=== PATIENT | male | born 1950 | race Caucasian/White ===

== ENCOUNTER → 2017-10-06 | Outpatient (CLI) | payer MEDICARE ==
[~2017-10-06] MED LIST: ACYCLOVIR 800800 MG; AMITRIPTYLINE H75 M2 PO; ANAPROX DS550 MG PO; ASPIR 8181 M1 PO; CALCIUM 500+D1 EAC2; CALCIUM CITRAT480 GM PO; CARAFATE 1 GM TA1 GM PO; CARDIZEM CD120 MG PO; CARDIZEM30 MG PO; CARISOPRODOL 3350 MG PO; CENTRUM SILVER1 EAC2 PO; CIPROFLOXACIN500 M1 PO; CIPROFLOXACIN500 M3 OR; DURAGESIC1 EAC2; FLAGYL500 MG PO; FLEXERIL PO; FLOMAX PO; HYDROCODON-ACE1 EAC7 PO; HYDROCODONE-AP1 EAC6 PO; IBUPROFEN 600600 M1 PO; IBUPROFEN 800800 M1 PO; LIDODERM 5%1 PATC1 TOP; LIDODERM 5%1 PATC1 TRANSDERM; LIPITOR10 MG; MEDROLDOSEPACK PO; METOPROLOL TART25 MG PO; NAPROSYN250 MG PO; NEURONTIN 300300 M1 PO; NOHOMEMEDICATIONS; NORCO 5-325 TA1 EACH PO; OMEPRAZOLE 20 M20 M1; OMEPRAZOLE 20 M20 MG PO; OXYCODONE HCL 55 MG PO; PERCOCET 5-3251 EACH PO; PERCOCET 7.5-31 EACH PO; PERCOCET PO; PRILOSEC 20 MG20 MG; REGLAN 10 MG TA10 MG PO; TOPROL XL25 MG; TRAMADOL 50 MG50 MG PO; ULTRAM 50MG TAB50 MG PO; VALIUM5 MG PO; VICODIN 5-5001 EACH PO; VICOPROFEN 2001 EACH PO; VITAMINS; WELLBUTRIN SR150 MG PO; XARELTO10 MG PO; ZOFRAN 4 MG ORAL4 M1 DIS; ZOFRAN ODT4 MG PO
== END ==
LOC: M.ULTRA 09:13
DX: R10.11 Right upper quadrant pain (principal)

== ENCOUNTER → 2017-10-14 | Outpatient (CLI) | payer MEDICARE | LOC: M.ULTRA 13:07 | DX: R94.6 Abnormal results of thyroid function studies (principal) ==

== ENCOUNTER → 2017-11-26 | Outpatient (CLI) | payer MEDICARE ==
[2017-11-26 13:54] LABS: CREATININE 0.8 mg/dL (0.6-1.3)
== END ==
LOC: M.LAB 13:19 → M.MRI 14:30
PROVIDERS: Orthopaedic Surgery
DX: R22.31 Localized swelling, mass and lump, right upper limb (principal)

== ENCOUNTER 2017-11-28 21:30 | Emergency (ER) | payer MEDICARE ==
[~2017-11-28] VITALS: Ht 177.8 cm; Wt 68.0 kg
[~2017-11-28 21:30] MED LIST changes: -CARAFATE 1 GM TA1 GM PO; -CIPROFLOXACIN500 M1 PO; -FLAGYL500 MG PO; -PRILOSEC 20 MG20 MG; -REGLAN 10 MG TA10 MG PO
[2017-11-28] MEDS ORDERED: PRILOSEC 20 MG20 MG (21:39)
[2017-11-28 22:02] LABS: ABSOLUTE LYMPHOCYTES 2.9 thou/uL (0.8-5.3); ABSOLUTE MONOCYTES 0.5 thou/uL (0.0-1.2); ABSOLUTE NEUTROPHILS 5.6 thou/uL (1.6-8.1); BASOPHILS 0.2 %; EOSINOPHILS 0.5 %; HEMATOCRIT 44.8 % (42.0-52.0); HEMOGLOBIN 14.9 gm/dL (14.0-18.0); LYMPHOCYTES 31.6 %; MCH 32.3 pg (26.0-34.0); MCHC 33.1 g/dL (28.0-37.0); MCV 97.5 fL (80.0-100.0); MPV 7.7 fl. (7.2-11.1); NUCLEATED RBCS 0 /100WBC; PLATELET COUNT* 339 thou/uL (150-400); POLYS 61.7 %; RDW-CV 13.4 % (10.5-14.5); WBC 9.1 thou/uL (4.0-11.0)
[2017-11-28 22:10] LABS: CALCIUM 9.4 mg/dL (8.5-10.1); CREATININE 0.9 mg/dL (0.6-1.3); POTASSIUM 3.5 mmol/L (3.5-5.1)
[2017-11-28 22:15] LABS: ALBUMIN 3.7 g/dL (3.4-5.0); TOTAL BILIRUBIN 0.4 mg/dL (<0.1-1.0); TOTAL PROTEIN 7.4 g/dL (6.4-8.2)
[2017-11-28 23:12] LABS: URINE BILIRUBIN NEGATIVE (Negative); URINE BLOOD NEGATIVE (Negative); URINE CLARITY CLEAR; URINE COLOR YELLOW; URINE GLUCOSE-RANDOM NEGATIVE (Negative); URINE KETONES NEGATIVE (Negative); URINE LEUKOCYTES-REFLEX NEGATIVE (Negative); URINE NITRITE-REFLEX NEGATIVE (Negative); URINE PROTEIN NEGATIVE (Negative); URINE SPECIFIC GRAVITY <= 1.005 (1.005-1.030); URINE UROBILINOGEN 0.2 E.U./dl (0.2-1.0)
[2017-11-28 23:21] LABS: AMP/METHAMP Negative (Negative); BARBITURATES Negative (Negative); BENZODIAZEPINES Negative (Negative); COCAINE Negative (Negative); METHADONE Negative (Negative); OPIATES Negative (Negative); PCP Negative (Negative); THC Negative (Negative)
[2017-11-28] MEDS ORDERED: FLAGYL500 MG PO (23:47)
[2017-11-28] MEDS ORDERED: CARAFATE 1 GM TA1 GM PO (23:47)
[2017-11-28] MEDS ORDERED: NORCO 5-325 TA1 EACH PO (23:47)
[2017-11-28] MEDS ORDERED: CIPROFLOXACIN500 M1 PO (23:47)
[2017-11-28] MEDS ORDERED: REGLAN 10 MG TA10 MG PO (23:47)
[2017-11-29 00:04] VITALS: BP 111/64
== END 2017-11-29 01:30 | disposition home or self-care (01) ==
LOC: M.ERS 21:30
PROVIDERS: Emergency Medicine
DX: R10.12 Left upper quadrant pain (principal); F17.210 Nicotine dependence, cigarettes, uncomplicated; Z90.49 Acquired absence of other specified parts of digestive tract; Z88.0 Allergy status to penicillin

== ENCOUNTER → 2017-12-10 | Outpatient (CLI) | payer MEDICARE ==
[~2017-12-10] MED LIST changes: +CARAFATE 1 GM TA1 GM PO; +CIPROFLOXACIN500 M1 PO; +FLAGYL500 MG PO; +PRILOSEC 20 MG20 MG; +REGLAN 10 MG TA10 MG PO
== END ==
LOC: M.NUC 07:00
DX: R10.9 Unspecified abdominal pain (principal); R68.81 Early satiety; Z87.891 Personal history of nicotine dependence; Z88.0 Allergy status to penicillin

== ENCOUNTER → 2017-12-14 | Outpatient (CLI) | payer MEDICARE | LOC: M.NUC 07:06 | DX: R10.9 Unspecified abdominal pain (principal); R68.81 Early satiety ==

== ENCOUNTER → 2018-03-09 | Outpatient (CLI) | payer MEDICARE | LOC: M.MRI 15:48 | DX: M77.9 Enthesopathy, unspecified (principal); M77.11 Lateral epicondylitis, right elbow ==

== ENCOUNTER → 2018-05-13 | Outpatient (CLI) | payer MEDICARE | LOC: M.NUC 04-30 12:27 | DX: Z96.642 Presence of left artificial hip joint (principal) ==

== ENCOUNTER → 2018-07-13 | Outpatient (CLI) | payer MEDICARE | LOC: M.ULTRA 07-09 11:00 | DX: R10.12 Left upper quadrant pain (principal) ==

== ENCOUNTER → 2018-12-08 | Outpatient (CLI) | payer MEDICARE | LOC: M.MRI 14:18 | DX: M75.101 Unspecified rotator cuff tear or rupture of right shoulder, not specified as traumatic (principal) ==

== ENCOUNTER → 2019-01-25 | Outpatient (CLI) | payer MEDICARE | LOC: M.ULTRA 14:15 | DX: N50.3 Cyst of epididymis (principal); N50.89 Other specified disorders of the male genital organs; I86.1 Scrotal varices; N43.3 Hydrocele, unspecified ==

== ENCOUNTER → 2019-07-11 | Outpatient (CLI) | payer MEDICARE | LOC: M.CT 07-08 12:02 | DX: M48.54XA Collapsed vertebra, not elsewhere classified, thoracic region, initial encounter for fracture (principal); J98.4 Other disorders of lung; I25.10 Atherosclerotic heart disease of native coronary artery without angina pectoris; N28.1 Cyst of kidney, acquired ==

== ENCOUNTER → 2019-07-14 | Outpatient (CLI) | payer MEDICARE ==
[2019-07-14 10:08] LABS: ALBUMIN 3.7 g/dL (3.4-5.0); CALCIUM 9.1 mg/dL (8.5-10.1); POTASSIUM 4.2 mmol/L (3.5-5.1); TOTAL BILIRUBIN 0.2 mg/dL (<0.1-1.0); TOTAL PROTEIN 8.1 g/dL (6.4-8.2)
== END ==
LOC: M.LAB 09:37 → M.CT 11:00
PROVIDERS: Family Medicine
DX: R91.1 Solitary pulmonary nodule (principal); J98.4 Other disorders of lung